=== PATIENT | male | born 1960 | race African-American/Black ===

== ENCOUNTER 2019-01-21 16:04 | Emergency (ER) | payer OTHER ==
[~2019-01-21] VITALS: Ht 177.8 cm; Wt 100.0 kg
[2019-01-21] MEDS ORDERED: IBUPROFEN 600MG TABLET PO ONE (17:00)
[2019-01-21] MEDS ORDERED: HYDROCODONE/ACETAMINOPHEN 5/325MG TABLET PO ONE (17:00)
[2019-01-21] MEDS ORDERED: CLONIDINE 0.2MG TABLET PO ONE (18:45)
[2019-01-21 19:46] VITALS: BP 209/102
== END 2019-01-21 19:50 | disposition home or self-care (01) ==
LOC: ER 16:04
DX: M54.2 Cervicalgia (principal); M54.5 Low back pain; M25.552 Pain in left hip; M25.551 Pain in right hip; M79.651 Pain in right thigh; M79.652 Pain in left thigh; M25.562 Pain in left knee; M25.561 Pain in right knee; I10 Essential (primary) hypertension; S05.12XA Contusion of eyeball and orbital tissues, left eye, initial encounter; V49.49XA Driver injured in collision with other motor vehicles in traffic accident, initial encounter; Y93.89 Activity, other specified; Y92.488 Other paved roadways as the place of occurrence of the external cause
CPT/HCPCS: 72070; 72100; 73521; 73552; 73560; 99284